=== PATIENT | male | born 1975 | race Caucasian/White ===

== ENCOUNTER 2016-04-30 05:44 | Day surgery (SDC) | payer OTHER ==
[2016-04-30] MEDS ORDERED: LIDOCAINE 2% 5 ML SDV ONE (06:19)
[2016-04-30] MEDS ORDERED: LIDOCAINE 1% 5 ML SDV ID PRN (06:25)
[2016-04-30] MEDS ORDERED: LR 1,000 ML IV ONE (06:25)
[2016-04-30] MEDS ORDERED: THROMBIN (RECOMBINANT) 5,000 UNIT VIAL TP ONE (06:42)
[2016-04-30] MEDS ORDERED: BUPIVACAINE/EPI 0.25% 30 ML SDV ONE (06:43)
[2016-04-30] MEDS ORDERED: BACITRACIN 50,000 UNITS/10 ML SYR IRR ONE (06:43)
[2016-04-30] MEDS ORDERED: PROPOFOL 200 MG/20 ML VIAL ONE (07:03)
[2016-04-30] MEDS ORDERED: REMIFENTANIL HCL 1 MG VIAL ONE ×2 (07:03→09:08)
[2016-04-30] MEDS ORDERED: fentaNYL 100 MCG/2 ML INJ ONE ×4 (07:03→11:41)
[2016-04-30] MEDS ORDERED: PROPOFOL/EMULSION 500 MG/50 ML BOTTLE IV ONE ×2 (07:03→09:08)
[2016-04-30] MEDS ORDERED: MIDAZOLAM 2 MG/2 ML VIAL ONE (07:05)
[2016-04-30] MEDS ORDERED: SUCCINYLCHOLINE CHLORIDE*ANESTHESIA ONLY*200 MG/10 ML SYR IVP ONE (07:11)
[2016-04-30] MEDS ORDERED: CHLORHEXIDINE GLUC HIBICLENS 118 ML BTL TP ONE (07:30)
[2016-04-30] MEDS ORDERED: ceFAZolin 2 GM/DEXTROSE 100 ML IV ONE (07:30)
[2016-04-30] MEDS ORDERED: DEXAMETHASONE 10 MG/ML VIAL IVP ONE (07:30)
[2016-04-30] MEDS ORDERED: ONDANSETRON 4 MG/2 ML VIAL ONE (09:12)
[2016-04-30] MEDS ORDERED: DEXAMETHASONE 4 MG/ML VIAL ONE (09:12)
[2016-04-30] MEDS ORDERED: OXYCODONE/APAP 5/325 TAB ONE ×2 (10:49→11:41)
[2016-04-30] MEDS ORDERED: HYDROmorphONE/DILAUDID 1 MG/ML SYR ONE (10:50)
[2016-04-30 11:50] VITALS: BP 146/102; RESP 23; O2SAT 93
[2016-04-30] MEDS ORDERED: ALBUMIN 5% 250 ML BOTTLE IV ONE (12:13)
--- NOTE | 2016-04-30 12:16 | GOP ---
[f rep st] OPERATIVE REPORT DATE OF OPERATION: 04/30/2016 SURGEON: Joe Wetzel MD PLATE STACKER: Kevin Chavez, PAC. ANESTHESIA: General endotracheal. PREOPERATIVE DIAGNOSIS: 1. Progressive cervical spondylitic myelopathy. 2. Severe C3-4 degenerative disk disease and disk herniation with severe spinal stenosis and spinal cord compression. POSTOPERATIVE DIAGNOSIS: 1. Progressive cervical spondylitic myelopathy. 2. Severe C3-4 degenerative disk disease and disk herniation with severe spinal stenosis and spinal cord compression. PROCEDURE PERFORMED: 1. Mini open exposure for C3-4 complete anterior cervical diskectomy and placement of a 15 x 14 mm footprint and 5 mm in height Synthes ProDisc cervical artificial disk. 2. Use of intraoperative microscopy and fluoroscopy. FINDINGS: ESTIMATED BLOOD LOSS: 50 cc. INDICATIONS: The patient is a 40-year-old man who has progressive myelopathic symptoms and severe h yperreflexia and sustained clonus on examination, who was found to have severe cervical stenosis and spinal cord compression with myelomalacia at the C3-4 level. He presents now for surgical decompre ssion and placement of artificial disk. DESCRIPTION OF PROCEDURE: After informed consent was obtained, the patient was taken to the operati ng room and placed in a supine position while he was still awake. The patient was intubated in the neutral position and baseline neuromonitoring signals were obtained. The anterior cervical region w as then prepped and draped in a sterile fashion. After fluoroscopic localization of the correct lev el, the subcutaneous and intramuscular tissues were infiltrated with local anesthesia. A horizontal linear incision was then created at the level of the C3-4 interspace. This was carried through the platysmal layer using the monopolar electrocautery and carried in the avascular plane between the s ternocleidomastoid and carotid sheath laterally and the strap muscles, trachea, and esophagus medial ly, down to the prevertebral fascia. Note that the patient's soft tissues were very, very adherent and consistent with somebody who has undergone cervical radiation or something similar. This requir ed meticulous dissection under high-power microscopy to get through these tissues as well as vessel loops on internal jugular vein. Vessel loops were placed on this to pull it away from the esophagus , which it was terribly adherent to. Eventually, I was able to dissect through the proper planes an d the prevertebral space was identified. The C3-4 interspace was identified and reverified using in traoperative fluoroscopy. The Synthes distraction pins were then inserted and under a slight amount of distraction a complete diskectomy was performed with removal of the anteriorly and posteriorly p rotruding osteophytes, along with a posterior longitudinal ligament. Bilateral foraminotomies were performed and the osteophytes protruding posteriorly into the canal were carefully trimmed using the 1 and 2 mm Kerrison rongeurs. Following adequate decompression, the wound was copiously irrigated with antibiotic irrigation. Meticulous hemostasis was achieved. The Synthes trialing device was th en placed, and after verification of midline, the keel holes were carefully cut. The artificial dis k was inserted in the standard fashion, and the distraction pins were then inserted, along with the insertion device. Following this, the wound was copiously irrigated with antibiotic irrigation and meticulous hemostasis was achieved. After reverifying good position of the artificial disk, a drain was placed. Subcutaneous and intramuscular tissues were re-infiltrated with local anesthesia. The wound was closed in a layered fashion using interrupted Vicryl sutures followed by Steri-Strips on the skin. COMPLICATIONS: None. DISPOSITION: The patient was extubated and transferred to the recovery room in stable condition. /[id number]/MODL
== END 2016-04-30 14:38 | disposition home or self-care (01) ==
LOC: FSGY 05:44
PROVIDERS: ATTEND Neurological Surgery
PROC: 0RU30JZ Supplement Cervical Vertebral Disc with Synthetic Substitute, Open Approach (ICD-10-PCS; principal; 2016-04-30 07:15)
PROC: 00NW0ZZ Release Cervical Spinal Cord, Open Approach (ICD-10-PCS; principal; 2016-04-30 07:15)
PROC: 0RB30ZZ Excision of Cervical Vertebral Disc, Open Approach (ICD-10-PCS; principal; 2016-04-30 07:15)
DX: M50.01 Cervical disc disorder with myelopathy, high cervical region (principal); M48.02 Spinal stenosis, cervical region
CPT/HCPCS: 0375T; 76001; C1713; J0330; J0690; J1100; J1170; J2250; J2405; J2704; J3010; P9041